=== PATIENT | female | born 1950 | race Caucasian/White ===

== ENCOUNTER 2020-02-27 14:32 | Inpatient (IN) ==
[2020-02-27 14:47] VITALS: BMI 20.1
--- NOTE | 2020-02-27 14:48 | ED.PDOC ---
General ED Provider: Dr. DIANA MONTANEZ Chief Complaint: Foot Pain/Injury Stated Complaint: 69 year old white female seen here 02/15/2020 with c/o painful foot and found to have ischemic dry gangrene to her 2nd toe with cellulitis and STS to the dorsum of her foot. Denies fever, chills or sweats, n/v/d, chest pains, SOB or urinary sx. Time Seen by Physician: 14:45 Mode of Arrival: Walk-In Information Source: Patient Exam Limitations: No limitations Primary Care Provider: None Referred to ED by: Other (self) Nursing and Triage Documentation Reviewed and Agree: Yes Does patient meet sepsis criteria?: No System Inflammatory Response Syndrome: Not Applicable Sepsis Protocol: For patient's 13 years and over: Temp is 96.8 and below OR 101 and greater Pulse >90 BPM Resp >20/minute Acutely Altered Mental Status Are patient's symptoms suggestive of a new infection, such as: -Pneumonia -Skin, Soft Tissue -Endocarditis -UTI -Bone, Joint Infection -Implantable Device -Acute Abdominal Infection -Wound Infection -Meningitis -Blood Stream Catheter Infection -Unknown Review of Systems Review Of Systems Constitutional: Reports No symptoms Eyes: Reports No symptoms Ears, Nose, Mouth, Throat: Reports No symptoms Respiratory: Reports No symptoms Cardiac: Reports No symptoms GI: Reports No symptoms : Reports No symptoms Musculoskeletal: Reports No symptoms Skin: Reports No symptoms Neurological: Reports No symptoms Endocrine: Reports No symptoms Hematologic/Lymphatic: Reports No symptoms All Other Systems: Reviewed and Negative [facility] Reproductive History Menstrual Hx Hysterectomy: Yes Hx Tubal Ligation: No Physical Exam Physical Exam Appearance: Reports Ill-appearing, No pain distress and Thin Ill-appearing: Mild Pain Distress: Mild Eyes: Reports MARIAA, EOMI and Conjunctiva clear ENT: Reports Ears normal, Nose normal and Oropharynx normal Respiratory: Reports Airway patent, Breath sounds clear, Breath sounds equal and Respirations nonlabored Cardiovascular: Reports RRR, Pulses normal, No rub and No murmur GI/: Reports Soft, Nontender, No masses, Bowel sounds normal and No Orga nomegaly Musculoskeletal: Reports Normal strength, ROM intact, No edema, No calf tenderness and Other (Redness and STS to dorsum of left foot with dry gangrene of 2nd toe. Probable underlying osteomyelitis of 2nd toe and metatarsal heads. ) Skin: Reports Warm, Dry and Normal color Neurological: Reports Sensation intact, Motor intact, Reflexes intact, Cranial nerves intact, Alert and Oriented Psychiatric: Reports Affect appropriate and Mood appropriate Interpretation Radiology Interpretation Radiology Interpretation By: Radiologist Radiology Results: No acute changes Exam Interpreted: Other (foot) Re-Evaluation Re-Evaluation Time of Re-Evaluation: 17:00 Status: Unchanged Vital Signs Stable: Yes Pain Level: 3 Appearance: NAD Lungs: Clear Skin: Warm and Dry Neuro: Alert and Oriented X3 CV: RRR Critical Care Note Critical Care Note Total Time (mins): 120 Course Course Hematology/Chemistry: 02/27/20 15:17 02/27/20 15:17 Orders, Labs, Meds: Lab Review 02/27/20 02/27/20 02/27/20 15:17 15:17 15:17 WBC 5.46 RBC 4.47 Hgb 13.3 Hct 40.8 MCV 91.3 MCH 29.8 MCHC 32.6 RDW Coeff of Tresa 15.2 H Plt Count 254 Immature Gran % (Auto) 0.2 Neut % (Auto) 66.8 Lymph % (Auto) 22.2 [place] % (Auto) 9.0 Eos % (Auto) 1.1 Baso % (Auto) 0.7 Neut # (Auto) 3.7 Lymph # (Auto) 1.2 [place] # (Auto) 0.5 Eos # (Auto) 0.1 Baso # (Auto) 0.0 Immature Gran # (Auto) 0.0 ESR Sodium 138.1 Potassium 3.91 Chloride 104.9 Carbon Dioxide 29.3 Anion Gap 7.81 BUN 10.6 Creatinine 0.69 Estimated GFR (MDRD) 84.00 BUN/Creatinine Ratio 15.36 Glucose 110.9 H Lactic Acid Calcium 9.14 Total Bilirubin 0.41 AST 21.4 ALT 7.3 Alkaline Phosphatase 124.2 Total Protein 7.45 Albumin 3.84 Globulin 3.61 Albumin/Globulin Ratio 1.06 Procalcitonin < 0.05 02/27/20 02/27/20 15:17 15:17 WBC RBC Hgb Hct MCV MCH MCHC RDW Coeff of Tresa Plt Count Immature Gran % (Auto) Neut % (Auto) Lymph % (Auto) [place] % (Auto) Eos % (Auto) Baso % (Auto) Neut # (Auto) Lymph # (Auto) [place] # (Auto) Eos # (Auto) Baso # (Auto) Immature Gran # (Auto) ESR 36 H Sodium Potassium Chloride Carbon Dioxide Anion Gap BUN Creatinine Estimated GFR (MDRD) BUN/Creatinine Ratio Glucose Lactic Acid 1.15 Calcium Total Bilirubin AST ALT Alkaline Phosphatase Total Protein Albumin Globulin Albumin/Globulin Ratio Procalcitonin Orders Category Date Time Status ED VITAL SIGNS Q1HR EMERGENCY 02/27/20 14:55 Active BLOOD CULTURE Stat LAB 02/27/20 15:17 Received CBC W/ AUTO DIFF Stat LAB 02/27/20 15:17 Completed COMPREHENSIVE METABOLIC PANEL Stat LAB 02/27/20 15:17 Completed ESR Stat LAB 02/27/20 15:17 Completed LACTIC ACID Stat LAB 02/27/20 15:17 Completed PROCALCITONIN Stat LAB 02/27/20 15:17 Completed URINALYSIS C & S IF INDICATED Stat LAB 02/27/20 14:55 Uncollected Vancomycin 1 gm MEDS 02/27/20 14:55 Discontinued 0.9 % Sodium Chloride [Sodium Chloride] 250 ml IV ONCE FOOT, LEFT 3 VIEWS Stat RADS 02/27/20 14:57 Completed Medications Discontinued Medications Generic Name Dose Route Start Last Admin Trade Name Freq PRN Reason Stop Dose Admin Vancomycin HCl 1 gm/ Sodium 250 mls @ 250 mls/hr 02/27/20 14:55 02/27/20 17:06 Chloride IV 02/27/20 15:54 250 mls/hr [place] [address] Diagnostic Imaging Diagnostic Imaging Report : [id number] Signed Patient: GUY SANCHEZcct:[id number] Record: [id number] : 1950Loc: EDRoom/Bed: Age/Sex: 69 / FADM Status: REG ERDate of Service: 02/27/20 Ordering Physician: DIANA MONTANEZ MD Procedure(s): FOOT, LEFT 3 VIEWS Report Number(s): [id number] Accession Number(s): [id number] cc: DIANA MONTANEZ MD EXAM: Radiographs, left foot HISTORY: Left foot osteomyelitis. COMPARISON: 02/15/2020. TECHNIQUE: Three views. FINDINGS: Bone mineralization is normal. There is no fracture or dislocation. Small retrocalcaneal spur is present. Joint spaces are preserved. There is no osseous destruction or periosteal reaction. There may be some soft tissue swelling over the forefoot. No subcutaneous air identified. IMPRESSION: No radiographic evidence for osteomyelitis. Dictated By:SUSHILA JOHNSON Signed By:SUSHILA JOHNSON Dictated Date/Time: 02/27/201534 Transcribed Date/Time: 02/27/201534 Signed Date/Time: 02/27/20 1542 Vital Signs: Temp Pulse Resp BP Pulse Ox 02/27/20 14:37 99.5 F 101 H 20 144/81 H 96 Discharge Plan Discharge Patient Disposition: ADMITTED INPATIENT Discharge Problem: Cellulitis of toe of left foot, Cellulitis and abscess of foot, Osteomyelitis of ankle or foot, left, acute ED Provider: DIANA MONTANEZ Condition: Fair Physician Progress Note: 69 year old femal;e with c/o dry gangrene to tip of 2nd toe with probable osteomyelitis. Will need admission for IV antibiotics and wound care. May need transfer or discharge for follow up with vascular.
[2020-02-27] MEDS ORDERED: VANCOMYCIN 1 GM in SODIUM CHLORIDE 250 ML IV STA (14:55)
[2020-02-27 15:30] LABS: BASOPHILS % (AUTO) 0.7 % (0.0-3.0); EOSINOPHILS # (AUTO) 0.1 K/ul (0.0-0.7); EOSINOPHILS % (AUTO) 1.1 % (0.0-7.0); HEMATOCRIT 40.8 % (37.0-47.0); HEMOGLOBIN 13.3 g/dl (12.0-16.0); IMMATURE GRANULOCYTE % (AUTO) 0.2 % (0.0-5.0); LYMPHOCYTES # (AUTO) 1.2 K/uL (0.60-3.4); LYMPHOCYTES % (AUTO) 22.2 (10.0-50.0); MEAN CORPUSCULAR HEMOGLOBIN 29.8 pg (27.0-31.0); MEAN CORPUSCULAR HGB CONC 32.6 (31.8-35.4); MEAN CORPUSCULAR VOLUME 91.3 fl (81.0-99.0); MONOCYTES # (AUTO) 0.5 K/uL (0.4-2.0); NEUTROPHILS # (AUTO) 3.7 K/ul (2.0-6.9); NEUTROPHILS % (AUTO) 66.8 % (42.2-75.2); PLATELET COUNT 254 10^3/uL (140-440); RDW COEFFICIENT OF VARIATION 15.2 % (11.6-14.8); RED BLOOD COUNT 4.47 10^6/ul (4.20-5.40); WHITE BLOOD COUNT 5.46 K/ul (4.6-10.2)
--- NOTE | 2020-02-27 15:42 | DI ---
EXAM: Radiographs, left foot HISTORY: Left foot osteomyelitis. COMPARISON: 02/15/2020. TECHNIQUE: Three views. FINDINGS: Bone mineralization is normal. There is no fracture or dislocation. Small retrocalcaneal spur is present. Joint spaces are preserved. There is no osseous destruction or periosteal reactio n. There may be some soft tissue swelling over the forefoot. No subcutaneous air identified. IMPRESSION: No radiographic evidence for osteomyelitis.
[2020-02-27 15:44] LABS: ALANINE AMINOTRANSFERASE 7.3 U/L (0-35); ALBUMIN 3.84 g/dL (3.5-5.0); ALKALINE PHOSPHATASE 124.2 U/L (53-141); ASPARTATE AMINO TRANSFERASE 21.4 U/L (14-36); BILIRUBIN,TOTAL 0.41 mg/dL (0.2-1.3); BLOOD UREA NITROGEN 10.6 mg/dL (7-17); CALCIUM 9.14 mg/dL (8.4-10.2); CARBON DIOXIDE 29.3 mmol/L (22-30.0); CHLORIDE 104.9 mmol/L (98-107); CREATININE 0.69 mg/dL (0.60-1.30); GLUCOSE 110.9 mg/dL (74-106); POTASSIUM 3.91 mmol/L (3.5-5.1); SODIUM 138.1 mmol/L (134.5-145); TOTAL PROTEIN 7.45 g/dL (6.3-8.2)
[2020-02-27 16:19] LABS: ERYTHROCYTE SEDIMENTATION RATE 36 mm/hr (0-20)
[2020-02-27] MEDS ORDERED: TYLENOL PO PRN (17:36)
--- NOTE | 2020-02-27 17:49 | PCM ---
Chief Complaint Chief Complaint: Painful, infected, black area on left 2nd toe History of Present Illness History of Present Illness: 69 year old female with c/o of infected toe, now with dry gangrene to distal aspect of toe. Seen here for same c/o but left AMA due to family illness but now returns for same complaint. Denies, fever, chills, sweats, n/v/d, chest pains or SOB. Has been on po clindamycin for about a week, ran out 5-6 days ago. Review of Systems Constitutional: Reports No symptoms Eyes: Reports No symptoms Ears: Reports No symptoms Nose: Reports No symptoms Throat: Reports No symptoms Mouth: Reports No symptoms Respiratory: Reports No symptoms Cardiovascular: Reports No symptoms Gastrointestinal: Reports No symptoms Genitourinary: Reports No symptoms Neurological: Reports No symptoms Musculoskeletal: Reports Pain, Swelling in joints and Other (necrotic left 2nd toe) Skin: Reports No symptoms and Wounds (necrotic l;eft 2nd toe.) Immunology: Reports No symptoms Hematology: Reports No symptoms Endocrine: Reports No symptoms Psychiatric: Reports No symptoms Allergies Allergies Allergy/AdvReac Type Severity Reaction Status Date / Time Unobtainable Allergy Unverified 02/15/20 12:29 Medications Medications: Medications Generic Name Dose Route Start Last Admin Trade Name Freq PRN Reason Stop Dose Admin Acetaminophen 650 mg 02/27/20 17:36 Acetaminophen 325 Mg Tablet PO Q4H PRN Mild Pain Enoxaparin Sodium 30 mg 02/27/20 18:00 Enoxaparin Sodium 30 Mg/0.3 Ml Syr SUBCUT DAILY [facility] Vancomycin HCl 1 gm/ Sodium 250 mls @ 250 mls/hr 02/27/20 18:00 Chloride IV 03/01/20 17:59 DAILY [facility] Body Composition Height: 5 ft 6 in Weight: 125 lb Body Mass Index (BMI): 20.1 Vital Signs Temperature: 99.5 F Pulse Rate: 101 Respiratory Rate: 20 Blood Pressure: 144/81 O2 Sat by Pulse Oximetry: 96 Physical Examination Appearance: Reports Ill-appearing (Chronicall ill appearing) Ill-appearing: Mild Pain Distress: Mild Eyes: Reports MARIAA, EOMI and Conjunctiva clear ENT: Reports Ears normal, Nose normal and Oropharynx normal Respiratory: Reports Airway patent, Breath sounds clear and Breath sounds equal Cardiovascular: Reports RRR, Pulses normal, No rub and No murmur GI/: Reports Soft, Nontender, No masses, Bowel sounds normal and No Organomegaly Musculoskeletal: Reports Normal strength, ROM intact, No edema, No calf tenderness and Other (necrotic tip of left 2nd toe. Mild STS and tenderness to dorsum of left foot. ) Skin: Reports Warm, Dry, Normal color and Other (necrotic tip of toe and cellulitis to dorsum of left foot. ) Neurological: Reports Sensation intact, Motor intact, Reflexes intact, Cranial nerves intact, Alert and Oriented Psychiatric: Reports Affect appropriate and Mood appropriate Lab/Tests/Diagnostic Imaging Lab/Tests/Diagnostic Imaging: Lab Review 02/27/20 02/27/20 02/27/20 15:17 15:17 15:17 WBC 5.46 RBC 4.47 Hgb 13.3 Hct 40.8 MCV 91.3 MCH 29.8 MCHC 32.6 RDW Coeff of Tresa 15.2 H Plt Count 254 Immature Gran % (Auto) 0.2 Neut % (Auto) 66.8 Lymph % (Auto) 22.2 [place] % (Auto) 9.0 Eos % (Auto) 1.1 Baso % (Auto) 0.7 Neut # (Auto) 3.7 Lymph # (Auto) 1.2 [place] # (Auto) 0.5 Eos # (Auto) 0.1 Baso # (Auto) 0.0 Immature Gran # (Auto) 0.0 ESR Sodium 138.1 Potassium 3.91 Chloride 104.9 Carbon Dioxide 29.3 Anion Gap 7.81 BUN 10.6 Creatinine 0.69 Estimated GFR (MDRD) 84.00 BUN/Creatinine Ratio 15.36 Glucose 110.9 H Lactic Acid Calcium 9.14 Total Bilirubin 0.41 AST 21.4 ALT 7.3 Alkaline Phosphatase 124.2 Total Protein 7.45 Albumin 3.84 Globulin 3.61 Albumin/Globulin Ratio 1.06 Procalcitonin < 0.05 02/27/20 02/27/20 15:17 15:17 WBC RBC Hgb Hct MCV MCH MCHC RDW Coeff of Tresa Plt Count Immature Gran % (Auto) Neut % (Auto) Lymph % (Auto) [place] % (Auto) Eos % (Auto) Baso % (Auto) Neut # (Auto) Lymph # (Auto) [place] # (Auto) Eos # (Auto) Baso # (Auto) Immature Gran # (Auto) ESR 36 H Sodium Potassium Chloride Carbon Dioxide Anion Gap BUN Creatinine Estimated GFR (MDRD) BUN/Creatinine Ratio Glucose Lactic Acid 1.15 Calcium Total Bilirubin AST ALT Alkaline Phosphatase Total Protein Albumin Globulin Albumin/Globulin Ratio Procalcitonin Orders Category Date Time Status ADMIT PATIENT INPATIENT .TO [facility] (NON-MONITORED ADMISSION 02/27/20 17:29 Active BED) CASE MANAGEMENT CONSULT ONCE CARE 02/27/20 17:35 Ordered INCISION/WOUND CARE Q6HR CARE 02/27/20 17:40 Ordered INTAKE & OUTPUT Q8HR CARE 02/27/20 17:34 Ordered VITAL SIGNS Q8HR CARE 02/27/20 17:34 Ordered REGULAR DIET DIETARY 02/27/20 Dinner Ordered ED VITAL SIGNS Q1HR EMERGENCY 02/27/20 14:55 Active ED WOUND CARE .ONCE EMERGENCY 02/27/20 17:40 Ordered BLOOD CULTURE Stat LAB 02/27/20 15:17 Received CBC W/ AUTO DIFF DAILY@0600 LAB 02/28/20 06:00 Ordered CBC W/ AUTO DIFF DAILY@0600 LAB 02/29/20 06:00 Ordered CBC W/ AUTO DIFF Stat LAB 02/27/20 15:17 Completed COMPREHENSIVE METABOLIC PANEL Stat LAB 02/27/20 15:17 Completed ESR Stat LAB 02/27/20 15:17 Completed LACTIC ACID Stat LAB 02/27/20 15:17 Completed PROCALCITONIN Stat LAB 02/27/20 15:17 Completed URINALYSIS C & S IF INDICATED Stat LAB 02/27/20 14:55 Uncollected Acetaminophen [Tylenol] MEDS 02/27/20 17:36 Ordered 650 mg PO Q4H PRN Enoxaparin Sodium [Lovenox] MEDS 02/27/20 18:00 Ordered 30 mg SUBCUT DAILY Vancomycin 1 gm MEDS 02/27/20 18:00 Ordered 0.9 % Sodium Chloride [Sodium Chloride] 250 ml IV DAILY Vancomycin 1 gm MEDS 02/27/20 14:55 Discontinued 0.9 % Sodium Chloride [Sodium Chloride] 250 ml IV ONCE RESUSCITATION STATUS Routine OTHERS 02/27/20 17:34 Ordered FOOT, LEFT 3 VIEWS Stat RADS 02/27/20 14:57 Completed Medications Generic Name Dose Route Start Last Admin Trade Name Freq PRN Reason Stop Dose Admin Acetaminophen 650 mg 02/27/20 17:36 Acetaminophen 325 Mg Tablet PO Q4H PRN Mild Pain Enoxaparin Sodium 30 mg 02/27/20 18:00 Enoxaparin Sodium 30 Mg/0.3 Ml Syr SUBCUT DAILY [facility] Vancomycin HCl 1 gm/ Sodium 250 mls @ 250 mls/hr 02/27/20 18:00 Chloride IV 03/01/20 17:59 DAILY [facility] Discontinued Medications Generic Name Dose Route Start Last Admin Trade Name Freq PRN Reason Stop Dose Admin Vancomycin HCl 1 gm/ Sodium 250 mls @ 250 mls/hr 02/27/20 14:55 02/27/20 17:06 Chloride IV 02/27/20 15:54 250 mls/hr ONCE STA Administration Plan Plan: 69 year old femal with cellulitis of left foot with necrosis and dry gangrene to tip of left 2nd toe. Will need admission for IV abx and possible home ABX for osteomyelitis and voscular evaluation.
[2020-02-27] MEDS ORDERED: VANCOMYCIN 1 GM in SODIUM CHLORIDE 250 ML IV SCH (18:00)
[2020-02-27 19:41] LABS: BILIRUBIN,URINE Negative (NEGATIVE); CLARITY,URINE Slightly (CLEAR); COLOR,URINE Dark (YELLOW); GLUCOSE, URINE (UA) Negative (NEGATIVE); KETONES,URINE Negative (NEGATIVE); LEUKOCYTE ESTERASE ,URINE 2+ (NEGATIVE); NITRITE,URINE Negative (NEGATIVE); PH,URINE 5.5 (5-9); PROTEIN,URINE Trace (NEGATIVE); URINE, BLOOD Trace-lysed (NEGATIVE); UROBILINOGEN,URINE 0.2 (0.2)
[2020-02-27 20:00] LABS: BACTERIA,URINE 4+ (NOT PRESENT); CALCIUM OXALATE CRYSTALS,UR 1+ (NOT PRESENT)
[2020-02-27 20:01] LABS: TRICHOMONAS,URINE MODERATE (NOT PRESENT)
[2020-02-27] MEDS: NICODERM 14 MG TD SCH (21:19)
[2020-02-28 05:40] LABS: BASOPHILS % (AUTO) 0.7 % (0.0-3.0); EOSINOPHILS # (AUTO) 0.2 K/ul (0.0-0.7); EOSINOPHILS % (AUTO) 3.4 % (0.0-7.0); HEMOGLOBIN 12.6 g/dl (12.0-16.0); IMMATURE GRANULOCYTE % (AUTO) 0.4 % (0.0-5.0); LYMPHOCYTES # (AUTO) 1.5 K/uL (0.60-3.4); LYMPHOCYTES % (AUTO) 26.2 (10.0-50.0); MEAN CORPUSCULAR HEMOGLOBIN 29.2 pg (27.0-31.0); MEAN CORPUSCULAR HGB CONC 31.5 (31.8-35.4); MEAN CORPUSCULAR VOLUME 92.8 fl (81.0-99.0); MONOCYTES # (AUTO) 0.5 K/uL (0.4-2.0); NEUTROPHILS # (AUTO) 3.4 K/ul (2.0-6.9); NEUTROPHILS % (AUTO) 60.3 % (42.2-75.2); PLATELET COUNT 241 10^3/uL (140-440); RDW COEFFICIENT OF VARIATION 15.2 % (11.6-14.8); RED BLOOD COUNT 4.31 10^6/ul (4.20-5.40); WHITE BLOOD COUNT 5.57 K/ul (4.6-10.2)
[2020-02-28] MEDS: VANCOMYCIN 1 GM in SODIUM CHLORIDE 250 ML IV SCH ×2 (09:12→20:22)
[2020-02-28] MEDS: NICODERM 14 MG TD SCH (09:13)
[2020-02-28] MEDS: LOVENOX SUBCUT SCH (09:13)
--- NOTE | 2020-02-28 17:43 | PCM.PROG ---
ED Physician/Hospitalist note for 02/28/2020 S: "I feel better today", "my foot hurts less" O Vitals: BP 104/63 P: 82 R: 18 Temp 98.5 02 Sat: 95% Left foot: Swelling and redness much improved, wound also improved with cleaning and auto debridement from betadine dressing changes. No fever, lymphangiitis. Labs: ESR 36 CBC WBC: 5.6 H/H 12.6/40, 241K plts Xray shows no evidence of osteomyelitis A/P: 1: Cellulitis: Clinically improving on IV meds and dressing changes. Will reassess tomorrow but I think she can be discharged home with appropriate follow up after second dose of IV Abx. . 2: Osteomyelitis: Xray normal, ESR elevated. Will need vascular or wound care eval as outpatient for osteo and/or debridement.
[2020-02-28] MEDS ORDERED: VANCOMYCIN 1 GM in SODIUM CHLORIDE 250 ML IV SCH (18:00)
[2020-02-29 05:24] VITALS: TEMP 97.9
[2020-02-29 05:27] LABS: BASOPHILS # (AUTO) 0.1 K/uL (0-0.2); BASOPHILS % (AUTO) 1.2 % (0.0-3.0); EOSINOPHILS # (AUTO) 0.2 K/ul (0.0-0.7); EOSINOPHILS % (AUTO) 4.5 % (0.0-7.0); HEMATOCRIT 37.1 % (37.0-47.0); HEMOGLOBIN 11.8 g/dl (12.0-16.0); LYMPHOCYTES # (AUTO) 1.7 K/uL (0.60-3.4); LYMPHOCYTES % (AUTO) 38.9 (10.0-50.0); MEAN CORPUSCULAR HEMOGLOBIN 29.4 pg (27.0-31.0); MEAN CORPUSCULAR HGB CONC 31.8 (31.8-35.4); MEAN CORPUSCULAR VOLUME 92.5 fl (81.0-99.0); MONOCYTES # (AUTO) 0.4 K/uL (0.4-2.0); MONOCYTES % (AUTO) 9.9 (0-10); NEUTROPHILS # (AUTO) 1.9 K/ul (2.0-6.9); NEUTROPHILS % (AUTO) 45.5 % (42.2-75.2); PLATELET COUNT 223 10^3/uL (140-440); RDW COEFFICIENT OF VARIATION 15.1 % (11.6-14.8); RED BLOOD COUNT 4.01 10^6/ul (4.20-5.40); WHITE BLOOD COUNT 4.24 K/ul (4.6-10.2)
[2020-02-29] MEDS: NICODERM 14 MG TD SCH (08:53)
[2020-02-29] MEDS: LOVENOX SUBCUT SCH (08:54)
[2020-02-29] MEDS: VANCOMYCIN 1 GM in SODIUM CHLORIDE 250 ML IV SCH ×2 (08:54→20:02)
--- NOTE | 2020-02-29 11:51 | PCM.DC ---
Final Diagnosis: Cellulitis left foot Probable osteomyelitis left 2nd toe Medications at Discharge: Ambulatory Orders Medication Instructions Recorded 1 [No Reported Medications] 02/15/20 Clindamycin 150 mg tid for 7 days
--- NOTE | 2020-02-29 11:59 | PCM.PROG ---
ED/Hospitalist Progress Note S: "I feel pretty good today" O: Vitals:BP: 143/83 Pulse: 80 Resp: 18 Temp: 97.9 sat 02: 94 RA Exam: Afebrile, much improved with ,much less discomfort. Wound wallpaper cleaner and dry, still not sure about viability of tip of left 2nd toe. A/P: 1: Cellulitis of left foot: Much improved on IV Vancomycin. OK to switch to po clinda at this time and continue workup as outpatient. She will need a PCP follow up. 2: Osteomyelitis: Wound better, will need outpatient vascular evaluation and surgical debridement later this week.
[2020-02-29 14:30] VITALS: BP 106/64
== END 2020-02-29 21:27 | disposition home or self-care (01) | DRG 603 ==
LOC: ED 14:32 → MEDSURG B 16:16
PROVIDERS: ADMIT Emergency Medicine; ATTEND Emergency Medicine
DX: L02.612 Cutaneous abscess of left foot; M79.675 Pain in left toe(s); M86.172 Other acute osteomyelitis, left ankle and foot